=== PATIENT | female | born 1990 | race Caucasian/White ===

== ENCOUNTER 2016-07-15 09:19 | Emergency (ER) | payer OTHER ==
[~2016-07-15] VITALS: Ht 175.3 cm; Wt 75.0 kg
[~2016-07-15 09:19] MED LIST: CLON0.5T3 PO; GABA-113 PO; VENL150C PO; VENL150C56 PO
[2016-07-15 09:27] VITALS: TEMP 36.9; Ht 175.3 cm; Wt 75.0 kg
[2016-07-15 10:31] VITALS: BP 111/71; PULSE 106; O2SAT 96
--- NOTE | 2016-07-15 16:43 | EMERGENCY ROOM VISIT NOTE ---
History Report prepared by Shaji: Jasmyn Bautista Under the Supervision of: Dr. Elieser Whitehead M.D. First contact with patient: 09:47 Chief Complaint: BACK PAIN Stated Complaint: Sciatic NERVE History of Present Illness The patient is a 25 year old female who presents to the Emergency Room with complaints of worsening pain to her lower left back, radiating down the lateral aspect of her left leg to her mid thigh, over the past 3 weeks. Currently, she rates her discomfort as an 8/10, which increases with movement of her left leg. The patient denies suffering any falls or trauma to her back, however, she states that one morning three weeks ago, she just woke up with the pain, and had to be carried to the car as she was unable to walk secondary to her discomfort. At that time, the patient visited the [facility] and had x- rays done, which showed "sciatica". She was then prescribed steroids as well as Cyclobenzaprine, and then followed up with physical therapy for the following 2.5 weeks. The patient states that the steroids, muscle relaxers and PT were helping to improve her symptoms, however, since her prescription for the muscle relaxant ran out last week, her pain has become worse, and it has become harder for her to continue working as her pain worsens after standing and moving around after a few hours. She was given an additional prescription for steroids , and she is still currently taking them. The patient was also ordered to have an MRI at the [facility], but she was unable to complete it because she became claustrophobic in the closed space. [facility] did make another appointment to try for the MRI again. Patient states that she came to this ED today because her pain has become worse and she is not able to make it through a full shift at work, or sleep through the night secondary to these sharp, shooting pains. She denies having any fevers, incontinence of her bladder or bowels, saddle paresthesias, or numbness or weakness to her extremities. She also denies pain radiating down her right leg, and she is able to move it without pain or difficulty. Patient denies the chance of . Source of History: patient Onset: over the past 3 weeks Position: back (lower) Symptom Intensity: 8/10 Quality: sharp Timing: worsening Modifying Factors (Worsening): movement (left leg) Modifying Factors (Relieving): other (muscle relaxers) Associated Symptoms: No fevers, No numbness, No weakness Note: She denies having any incontinence of her bladder or bowels or saddle paresthesias. Review of Systems See HPI for pertinent positives & negatives. A total of 10 systems reviewed and were otherwise negative. Past Medical & Surgical Medical Problems: (1) Attention deficit hyperactivity disorder (2) Chronic hepatitis C (3) Chronic urinary tract infection Family History Diabetes mellitus Social History Smoking Status: Current Every Day Smoker Alcohol Use: none Drug Use: heroin Marital Status: in relationship Housing Status: lives alone Occupation Status: unemployed Current/Historical Medications No Active Prescriptions or Reported Meds Allergies Coded Allergies: No Known Allergies (Unverified , 07/15/16) Physical Exam Vital Signs Date Time Temp Pulse Resp B/P Pulse Ox O2 Delivery O2 Flow Rate FiO2 07/15/16 10:31 106 18 111/71 96 Room Air 07/15/16 09:27 36.9 103 17 115/79 97 Room Air Physical Exam Constitutional: Vital signs reviewed. Eyes: Pupils are equal round reactive to light. Conjunctiva are noninjected. ENT: Pharynx is clear without erythema or exudate. Mucous membranes are moist. Neck supple without meningeal signs. Respiratory: Clear to auscultation bilaterally. Breath sounds are equal bilaterally. Cardiovascular: Regular rate and rhythm. No rubs or gallops. GI: Soft, nondistended and nontender. Bowel sounds are present. Musculoskeletal: No peripheral edema. Integumentary: No cyanosis. Neurological: The patient is awake and alert. No focal deficits. Motor and sensation are intact, bilaterally, in the lower extremities, although difficult to asses secondary to pain in the proximal aspect of the left lower extremity. Psychiatric: Normal affect. Medical Decision & Procedures ED Course 0948: The patient was evaluated in room B4. A complete history and physical exam was performed. 1000: After reviewing the PDMP, I went back to discuss with the patient about what medications she was on. She stated that she was only currently taking steroids and no other medications. I asked about Suboxone, but she stated that she stopped taking it several months ago. I then explained that the data bases showed that she had a 28 day supply of Suboxone filled on the 27 of June. She then said that she didn't want to tell me that she was on it because she thought that I wouldn't help her if I knew about it. I told her that her assumptions were not true, however, since she lied about being on narcotics, I did not feel comfortable prescribing any additional narcotics at this time. I then suggested that she follow up with her PCP if she wished to receive a prescription for pain medications. The patient verbalized her understanding and agreement with this, and she is now ready for disposition. Medical Decision This is a 25-year-old female presents with low back pain. Differential diagnosis includes lumbar disc disease, radiculopathy, spinal stenosis, strain. I did perform a limited focused review of portions of the patient's old chart on the electronic medical record. The patient has had no recent pertinent visits to this hospital. I did evaluate the patient as noted above. The patient does have low back pain. She is neurologically intact and has no signs of spinal cord injury or cauda equina syndrome. She has had a workup at [facility] including x- rays recently and was placed on steroids and muscle relaxants. She presents here today because she is having continued pain. When I asked her why she did not see her doctor or go back to [facility] she stated that they were "ignorant " and were not helping her despite the fact that she had x-rays, an MRI scheduled and physical therapy as well as steroids and muscle relaxants prescribed. I did offer to provide her pain control but did not feel any workup was necessary here in the emergency department. She was advised to continue physical therapy as well as keep her appointment for her MRI. She was in agreement with this plan. I did plan to give her a short course of narcotics but I looked her up in the [place] drug database and she apparently recently received Suboxone. I did speak to the patient again and asked her if she was on any pain medication and she denied being on any pain medications. When I asked her if she was on Suboxone she stated that she stopped it several months ago. When I explained to her that our records show that she received a last month she admitted that she had lied about being on Suboxone because she thought that if she told me that she was on Suboxone I would not have provided her with any pain medication. I did explain to her that that would not of been the case but given that she lied to me I did not feel comfortable about giving her any narcotics. I recommended that she follow up with her regular physician for further pain management. She was discharged with a work note and given return instructions as outlined below. [place] Drug Monitoring Program Search Results: patient reviewed within database Drug Monitoring Findings: The patient filled a 28 day supply of Suboxone on June 27. Impression Primary Impression: Lower back pain Scribe Attestation The scribe's documentation has been prepared under my direct and personally reviewed by me in its entirety. I confirm that the note above accurately reflects all work, treatment, procedures, and medical decision making performed by me. Departure Information Dispostion Home / Self-Care Prescriptions No Active Prescriptions or Reported Meds Referrals Radames Mg M.D. (PCP) Forms HOME CARE DOCUMENTATION FORM, IMPORTANT VISIT INFORMATION, Work Instructions Patient Instructions ED Back Pain Acute Chronic, My [facility] Additional Instructions You have been examined and treated today on an emergency basis only. This is not a substitute for, or an effort to provide, complete comprehensive medical care. It is impossible to recognize and treat all injuries or illnesses in a single emergency department visit. It is therefore important that you follow up closely with your physician. Call as soon as possible for an appointment. Return for worsening symptoms or if you develop fever, vomiting, abdominal pain , loss of control of your bowel or bladder, numbness or weakness to your legs, numbness to your private area, difficulty urinating, or any other concerning symptoms. Problem Qualifiers Primary Impression: Lower back pain Chronicity: unspecified Back pain laterality: left Sciatica presence: with sciatica Sciatica laterality: sciatica of left side Qualified Codes: M54.42 - Lumbago with sciatica, left side
== END 2016-07-15 10:31 | disposition home or self-care (01) ==
LOC: C.EDB 09:22
DX: M54.5 Low back pain (principal); F90.0 Attention-deficit hyperactivity disorder, predominantly inattentive type; K73.9 Chronic hepatitis, unspecified; F17.200 Nicotine dependence, unspecified, uncomplicated